=== PATIENT | female | born 1935 | race Caucasian/White ===

== ENCOUNTER 2017-04-06 14:56 | Emergency (ER) | payer MEDICARE, OTHER ==
--- NOTE | 2017-04-06 15:10 | UC ---
Complaint Female HPI - HPI Summary HPI Summary: 82 YEAR OLD FEMALE PRESENTS WITH COMPLAINS OF URINARY FREQUENCY/URGENCY/ BURNING. - History Of Current Complaint Stated Complaint: URINARY Time Seen by Provider: 04/06/17 15:08 Hx Obtained From: Patient Onset/Duration: Sudden Onset Timing: Constant Severity Initially: Moderate Severity Currently: Moderate Pain Scale Used: 0-10 Numeric - 5 Character: Sharp Aggravating Factor(s): Movement - Allergies/Home Medications Allergies/Adverse Reactions: Allergies Allergy/AdvReac Type Severity Reaction Status Date / Time No Known Allergies Allergy Verified 04/06/17 15:15 Home Medications: Home Medications Diltiazem CD CAP* [Cardizem CD CAP*] 180 mg PO DAILY 04/06/17 [History Confirmed 04/06/17] Omeprazole CAP* [Prilosec CAP* 20 MG] 10 mg PO DAILY 04/06/17 [History Confirmed 04/06/17] Pravastatin (NF) [Pravachol (NF)] 20 mg PO DAILY 04/06/17 [History Confirmed 08/22] PMH/Surg Hx/FS Hx/Imm Hx Previously Healthy: Yes - Surgical History Surgical History: None - Family History Known Family History: Positive: None - Social History Occupation: Unemployed Substance Use Type: None Review of Systems Constitutional: Negative Skin: Negative Eyes: Negative ENT: Negative Respiratory: Negative Cardiovascular: Negative Gastrointestinal: Negative Genitourinary: Frequency, Urgency Motor: Negative Neurovascular: Negative Musculoskeletal: Negative Neurological: Negative Psychological: Negative All Other Systems Reviewed And Are Negative: Yes Physical Exam Triage Information Reviewed: Yes Eye Exam: Normal ENT Exam: Normal Dental Exam: Normal Neck exam: Normal Neck: Positive: 1 Respiratory Exam: Normal Cardiovascular Exam: Normal Abdominal Exam: Normal Musculoskeletal Exam: Normal Neurological Exam: Normal Psychological Exam: Normal Skin Exam: Normal Complaint Female Dx - Differential Dx/Diagnosis Provider Diagnoses: URINARY FREQUENCY. URINARY URGENCY Discharge - Discharge Plan Condition: Stable Disposition: HOME Prescriptions: Ciprofloxacin TAB* [Cipro 500 MG TAB*] 500 mg PO BID #14 tab Patient Education Materials: Urinary Tract Infection in Women (ED) Referrals: Non Staff,Doctor [Primary Care Provider] -
[2017-04-06 15:22] VITALS: BP 107/68
--- NOTE | 2017-04-09 06:59 | UC ---
Progress - Progress Note Progress Note: notify pt no UTI stop cipro recheck if still symptomatic
== END 2017-04-06 15:51 | disposition home or self-care (01) ==
LOC: UCCORT 14:56
DX: R35.0 Frequency of micturition (principal); R39.15 Urgency of urination
CPT/HCPCS: 81003; 87086; 99202; G0463